=== PATIENT | female | born 1950 | race African-American/Black ===

== ENCOUNTER 2018-10-21 11:26 | Emergency (ER) | payer MEDICARE, MEDICAID ==
[~2018-10-21] VITALS: Ht 167.6 cm; Wt 102.0 kg
[2018-10-21] MEDS ORDERED: CELE-193 PO (12:32)
[2018-10-21 12:59] VITALS: BP 155/90
--- NOTE | 2018-10-21 13:47 | NUR ---
CALLED IN RX FOR PT. CELEBREX 100MG PO, PRN FOR PAIN #20
== END 2018-10-21 13:01 | disposition home or self-care (01) ==
LOC: ER 11:27
DX: M17.11 Unilateral primary osteoarthritis, right knee (principal); I10 Essential (primary) hypertension; E11.9 Type 2 diabetes mellitus without complications; Z87.891 Personal history of nicotine dependence
CPT/HCPCS: 73560; 99284

== ENCOUNTER 2023-02-11 09:39 | Emergency (ER) | payer BC, MEDICAID ==
[~2023-02-11] VITALS: Ht 157.5 cm; Wt 104.5 kg
[~2023-02-11 09:39] MED LIST: CYCL-392 PO; DICL100G15 TOP
[2023-02-11 10:14] VITALS: BP 144/87; PULSE 85; RESP 16; TEMP 98.4; O2SAT 96
[2023-02-11] MEDS ORDERED: predniSONE 20 mg tablet PO ONE (12:10)
[2023-02-11] MEDS ORDERED: diphenhydrAMINE 25mg capsule PO ONE (12:10)
[2023-02-11] MEDS ORDERED: CETI-90 PO (12:11)
[2023-02-11] MEDS ORDERED: PERM60CR19 TOP (12:11)
[2023-02-11] MEDS ORDERED: FAMO-128 PO (12:11)
[2023-02-11] MEDS ORDERED: PRED20TA PO (12:11)
== END 2023-02-11 12:31 | disposition home or self-care (01) ==
LOC: ER 09:40
DX: L30.9 Dermatitis, unspecified (principal); T78.40XA Allergy, unspecified, initial encounter; B86 Scabies; L29.9 Pruritus, unspecified; I10 Essential (primary) hypertension; E11.9 Type 2 diabetes mellitus without complications; Z79.1 Long term (current) use of non-steroidal anti-inflammatories (NSAID); X58.XXXA Exposure to other specified factors, initial encounter
CPT/HCPCS: 99283; J7512; Q0163

== ENCOUNTER 2024-11-21 10:22 | Emergency (ER) | payer BC, MEDICAID ==
[~2024-11-21] VITALS: Ht 160 cm; Wt 93.1 kg
[~2024-11-21 10:22] MED LIST changes: +AMLO-708 PO; +ASPI81TA52 PO; +ATOR-2 PO; -CYCL-392 PO; -DICL100G15 TOP; +HYDR25TA5 PO; +LISI10TA27 PO; +METF-1203 PO; +POTA-188 PO
[2024-11-21 10:32] VITALS: BP 143/76; PULSE 90; RESP 16; TEMP 98; O2SAT 98
--- NOTE | 2024-11-21 14:55 | VISIT NOTE ---
ED Rapid Medical Assessment History 73-year-old female reports ER for chief complaint of shortness a monitor complications. Patient states her Holter monitor came off and she would like it readjusted and put back on. Currently denies chest pain. 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 No other complaints at this time Exam: General: Well developed, well nourished, no distress. Respiratory: Lungs clear, no respiratory distress. Chest: No accessory muscle use, nontender. Cardiovascular: Regular rate and rhythm. Gastrointestinal: Soft, nontender, nondistended. Bowel sounds present. Extremities: Normal range of motion, nontender, normal capillary refill, no deformity. Neurologic: Oriented x4. Distal gross motor and sensory intact all four extremities. Moves all 4 extremities spontaneously. Psychiatric: Normal mood and affect. Assessment and Plan I have introduced myself to the patient and obtained a limited history and physical. I have explained that further studies may need to be obtained to r each an accurate diagnosis. Studies have been ordered consistent with the patient's chief complaint. Patient understands and wishes to proceed. Patient appears medically stable and not requiring emergent management at this time. KAVIN MARTI November 21, 2024 14:55
== END 2024-11-21 14:58 | disposition left against medical advice (07) ==
LOC: ER 10:22
DX: Z00.8 Encounter for other general examination (principal); Z91.011 Allergy to milk products; Z53.21 Procedure and treatment not carried out due to patient leaving prior to being seen by health care provider

== ENCOUNTER 2025-05-06 13:00 | Emergency (ER) | payer BC, MEDICAID ==
[~2025-05-06] VITALS: Ht 162.6 cm; Wt 97.8 kg
[2025-05-06 13:02] VITALS: TEMP 97.4
[2025-05-06 14:38] LABS: MEAN PLATELET VOLUME 6.7 FL (7.4-10.4); RED CELL DISTRIBUTION WIDTH 15.7 % (11.5-14.5)
[2025-05-06 14:55] LABS: CREATININE 0.71 MG/DL (0.40-0.90); TOTAL CARBON DIOXIDE 27.0 MMOL/L (24-32); eCRCL 59 ML/MIN; eGFR > 90 ML/MIN
--- NOTE | 2025-05-06 14:58 | RADIOLOGY REPORT ---
CHEST RADIOGRAPH Indication: Musculoskeletal pain posterior Technique: Single frontal view of the chest was obtained Comparison: DI CHEST,SINGLE VIEW on DOS: 11/25/23 FINDINGS: Lines and Tubes: None Lungs: No focal consolidation. Pleura: No effusion. No pneumothorax. Cardiomediastinal contours: Unremarkable Bones: No acute osseous abnormality. IMPRESSION: No acute cardiopulmonary disease.
[2025-05-06 15:01] LABS: LEUKOCYTE ESTERASE ,URINE SMALL (Neg); NITRITES, URINE NEGATIVE (Neg); OCCULT BLOOD,URINE NEGATIVE (Neg)
[2025-05-06 15:11] LABS: UA COLLECTION TYPE CLN CATCH MIDSTREAM
[2025-05-06 15:13] LABS: MUCUS STRANDS FEW /LPF (Neg); SQUAMOUS EPITHELIAL CELL,UR FEW /LPF (FEW)
[2025-05-06] MEDS: CefTRIAXone 1000mg IM Kit (w/lidocaine diluent) IM ONE (15:52)
[2025-05-06] MEDS: ketorolac trometh 15mg/ml vial 15 MG/ML ML IM ONE (15:52)
--- NOTE | 2025-05-06 16:12 | Physician Documentation ---
History of Present Illness ~ Chief Complaint: Back Pain Stated Complaint: SHOULDER AND HAND PAIN Time Seen by MD: 13:59 Primary Medical Doctor: Tea HPI Patient is a very pleasant 74-year-old female that presents to the emergency department for evaluation of flank pain with dysuria generalized back pain times 3 days. Patient denies any chest pain shortness of breath chest pressure nausea vomiting or diarrhea at this time. Medication Reconciliation Allergies: Coded Allergies: lactose (Verified Allergy, Severe, 05/06/25) Pt reports severe GI upset with lactose Scheduled Amlodipine Besylate (Amlodipine Besylate), 1 TAB PO DAILY, (Reported) Aspirin (Aspirin EC), 1 TAB PO DAILY, (Reported) Atorvastatin Calcium (Atorvastatin Calcium), 1 TAB PO DAILY, (Reported) Hydrochlorothiazide (Hydrochlorothiazide), 0.5 TAB PO DAILY Lisinopril (Lisinopril), 1 TAB PO DAILY, (Reported) Metformin HCl (Metformin HCl), 2 TAB PO BID, (Reported) Potassium Chloride* (Klor-Con*), 1 TAB PO DAILY, (Reported) Past Medical History Past Medical History: Hypertension, Diabetes Past Surgical History: noncontributory Alcohol Use: None Drug Use: none Lives with: Spouse Lives In: Home Occupation: employed Review of Systems ROS As stated above in the HPI, otherwise all systems are reviewed and negative. Physical Exam Physical Exam Vital Signs: Temperature: 97.4, Source: Temporal, Heart Rate: 97, Respiratory Rate: 16, BP: 167/83, Pulse Oximetry: 99, Weight: 97.800 Oxygen Flow Rate: 0 Physical Exam VITALS: Reviewed and as above. GENERAL: Alert, no apparent distress. HEENT: Normocephalic, atraumatic, PERRL, EOMI, dry mucosa, no erythema RESPIRATORY: Lungs clear, normal breath sounds, no respiratory distress. CHEST: No accessory muscle use, no retractions CV: Regular rate, rhythm, no edema, no murmur, No: JVD GI: Soft, patient was palpation to the bilateral lower abdomen, bowels sounds present, no rebound, guarding, or rigidity BACK: Positive CVA tenderness, or swelling MUSCULOSKELETAL No deformities, no edema SKIN: Warm and dry, no rash NEURO: Oriented x4, No motor or sensory deficit PSYCH: Normal mood and affect, no agitation Progress Results/Orders Results/Orders Orders - JAE,ANNMARIE A [employer]AGE DISPOSAL WORK[employer] Chest,Single View (05/06/25 14:31) Cult Urine + [address] (05/06/25 15:14) Completed Orders - ANNMARIE ROWE Obed [employer]POS[employer] Cbc/Diff (05/06/25 14:17) CMP (05/06/25 14:17) Chest,Single View (05/06/25 14:31) Acetaminophen 325mg Tablet (Tylenol Tabl (05/06/25 14:35) Ua W/Microscopic, Cult If Ind (05/06/25 14:47) Ketorolac Trometh 15mg/Ml Vial (Toradol (05/06/25 15:40) Ceftriaxone Im Kit W/Lidocaine (Rocephin (05/06/25 15:40) Medications Received in ER Medications (Trade) Dose Ordered Sig/Mango Route PRN Reason Start Time Stop Time Status Last Admin Dose Admin (Tylenol tablet) 975 mg ONCE ONCE PO 05/06/25 14:35 05/06/25 14:36 DC 05/06/25 14:57 975 MG (Toradol injection) 15 mg ONCE ONCE IM 05/06/25 15:40 05/06/25 15:41 DC 05/06/25 15:52 15 MG (Rocephin 1GM IM kit (w/lidocaine diluent)) 1,000 mg ONCE ONCE IM 05/06/25 15:40 05/06/25 15:41 DC 05/06/25 15:52 1,000 MG Vital Signs 05/06/25 05/06/25 13:02 15:52 Temp 97.4 Pulse 97 Resp 20 16 B/P (MAP) 167/83 Pulse Ox 99 O2 Flow Rate 0 Laboratory Tests Test 05/06/25 14:29 05/06/25 14:47 White Blood Count 4.7 Red Blood Count 4.36 Hemoglobin 11.3 L Hematocrit 34.9 L Mean Corpuscular Volume 80.0 Mean Corpuscular Hemoglobin 26.0 L Mean Corpuscular Hemoglobin Concent 32.5 L Red Cell Distribution Width 15.7 H Platelet Count 562 H Mean Platelet Volume 6.7 L Neutrophils (%) (Auto) 58.4 Lymphocytes (%) (Auto) 32.4 Monocytes (%) (Auto) 8.0 Eosinophils (%) (Auto) 0.6 Basophils (%) (Auto) 0.6 Neutrophils # (Auto) 2.7 Lymphocytes # (Auto) 1.5 Monocytes # (Auto) 0.4 Eosinophils # (Auto) 0.0 Basophils # (Auto) 0.0 CBC Comment Sodium Level 141 Potassium Level 3.5 Chloride Level 106 Carbon Dioxide Level 27.0 Anion Gap 8 Blood Urea Nitrogen 12 Creatinine 0.71 Estimated GFR/1.73 m2 > 90 BUN/Creatinine Ratio 16.9 Glucose Level 80 Calcium Level 9.1 Total Bilirubin 0.4 Aspartate Amino Transf (AST/SGOT) 20 Alanine Aminotransferase (ALT/SGPT) 30 Alkaline Phosphatase 75 Total Protein 8.1 Albumin 3.8 Globulin 4.3 Albumin/Globulin Ratio 0.9 L Chemistry Comments Urine Specimen Description Cln catch midstream Urine Color Yellow Urine Clarity Clear Urine pH 6.0 Urine Specific Rodman 1.015 Urine Protein Negative Urine Glucose (UA) Negative Urine Ketones Negative Urine Occult Blood Negative Urine Nitrite Negative Urine Bilirubin Negative Urine Urobilinogen 0.2 Urine Leukocyte Esterase Small H Urine RBC 3-10 Urine WBC 5-10 H Urine Squamous Epithelial Cells Few Urine Transitional Epithelial Cells Few Urine Bacteria None seen Urine Mucus Few Urine Culture Indicated Indicated Volume Urine Centrifuged 7 ml Urine Comment Low volume Microbiology Date/Time Source Procedure Growth Status 05/06/25 15:14 Urine Clean Catch Midstream Urine Culture - Preliminary Culture received. Resulted Medical Decision Making Additional information obtaine: other Findings Patient: 74-year-old female Presentation: Flank pain and dysuria. Diagnosis: Urinary tract infection (UTI) with probable pyelonephritis. Medical Decision-Making: Patient presented with classic symptoms of pyelonephritis (flank pain, dysuria). Urinalysis confirmed UTI. No evidence of sepsis, hemodynamic instability, or complicating factors (e.g., obstruction, , inability to tolerate oral intake), making her a candidate for outpatient management. Diagnostics: Urine culture obtained to guide definitive therapy per Infectious Diseases Society of [place] (IDSA) guidelines.No imaging or blood cultures indicated in uncomplicated cases. ED Interventions: Ketorolac 15 mg IM for analgesia. Ceftriaxone 1 g IM/IV as initial long-acting parenteral antimicrobial, appropriate given local resistance rates and guideline recommendations for initial therapy in pyelonephritis. Antibiotic Plan: Patient will be discharged on oral antibiotics. Empiric options include oral fluoroquinolones (e.g., ciprofloxacin 500 mg BID for 7 days or levofloxacin 750 mg daily for 5 days) if local resistance to fluoroquinolones is ?10%. If resistance rates are higher or contraindications exist, oral third-generation cephalosporins (e.g., cefpodoxime, cefdinir) are reasonable alternatives, especially after initial parenteral ceftriaxone. TMP-SMX and oral beta-lactams are less preferred due to resistance and lower efficacy, but may be considered if susceptibility is confirmed. Disposition: Patient is stable for discharge. She is alert, able to tolerate oral intake, and has reliable follow-up. Advised to monitor for worsening symptoms (fever, persistent pain, vomiting, confusion) and return if these occur. Urine culture results will be reviewed; antibiotic regimen will be adjusted if needed based on susceptibilities. Shared Decision-Making: Risks, benefits, and alternatives to outpatient management and antibiotic choices discussed. Patient agrees with plan and understands indications for return. Follow-Up: Primary care follow-up in 48-72 hours or sooner if symptoms worsen. Urine culture results pending; will contact patient if regimen change is required. Summary: Outpatient management of uncomplicated pyelonephritis with initial parenteral ceftriaxone and transition to oral antibiotics is supported by current guidelines and recent evidence.[1-5] Differential Dx:Considerations: Aortic dissection, Pyelonephritis, Urinary tract infection, Other Departure Disposition: 01 HOME / SELF CARE / HOMELESS Impression: Primary Impression: Flank pain Additional Impressions: Urinary tract infection Pyelonephritis Condition: Stable Discharge Instructions: Pyelonephritis, Adult, [id number], Urinary Tract Infection, Adult, [id number] Additional Instructions: You were seen in the emergency department for flank pain and painful urination. You were diagnosed with a urinary tract infection (UTI) with probable pyelonephritis (kidney infection). You received pain and antibiotic injections in the hospital and are being discharged with a prescription for cefpodoxime 200 mg, to be taken by mouth twice daily for 10 days. Take each dose with food to help your body absorb the medicine. What to expect: You should start to feel better within 4872 hours of starting antibiotics. Finish all of your antibiotics, even if you feel better, to make sure the infection is completely treated. Mild side effects like upset stomach or diarrhea can happen. If you have severe diarrhea, stop the medication and call your doctor. Strict return precautions: Return to the emergency department or call your doctor right away if you experience: Fever over 101F (38.3C) that does not improve after 48 hours of antibiotics Worsening or severe pain in your back, side, or abdomen Vomiting or inability to keep down fluids or medications New confusion, weakness, or trouble breathing Blood in your urine, or if your urine becomes very dark No improvement in symptoms after 23 days of antibiotics Any allergic reaction (rash, swelling, trouble breathing) Follow-up: Schedule an appointment with your primary care provider within 1 week, or sooner if you have any concerns. If your symptoms do not improve or get worse, you may need further tests or a change in medication. You do not need a repeat urine test unless your symptoms persist or return after treatment. Other instructions: Drink plenty of fluids unless your doctor has told you otherwise. Take your medication exactly as prescribed. Do not skip doses. If you have kidney problems or are on diuretics, let your doctor know, as your medication dose may need to be adjusted. If you develop new symptoms or have questions, contact your doctor or return to the emergency department. If you have any questions about your medication or your condition, please call your doctor or pharmacist. Wishing you a safe and speedy recovery. Referrals: NO PRIMARY CARE PROVIDER (PCP) Prescriptions Cefpodoxime Proxetil (Cefpodoxime Proxetil) 100 Mg Tablet 2 TAB PO Q12H for 10 Days, #14 TAB 0 Refills Prov: ANNMARIE ROWE 05/06/25 Cefpodoxime Proxetil (Cefpodoxime Proxetil) 100 Mg/5 Ml Susp.recon 1 TAB PO Q12H for 10 Days, #20 TAB 0 Refills Prov: ANNMARIE ROWE 05/06/25 Education Educated: Patient Educated regarding: diagnosis, treatment, need for follow up Signature Scribe Signature: A Attestation: Scribed for Annmarie Rowe by ALEKSANDR Mcdonnell . 05/06/25 16:21 ANNMARIE ROWE May 06, 2025 16:12
[2025-05-06] MEDS ORDERED: CEFP100T7 PO (16:20)
[2025-05-06] MEDS ORDERED: CEFP100S9 PO (16:20)
[2025-05-06 16:31] VITALS: BP 154/76; PULSE 91; RESP 16; O2SAT 97
== END 2025-05-06 16:32 | disposition home or self-care (01) ==
LOC: ER 13:01
DX: N12 Tubulo-interstitial nephritis, not specified as acute or chronic (principal); N39.0 Urinary tract infection, site not specified; R10.A0 Flank pain, unspecified side; I10 Essential (primary) hypertension; E11.9 Type 2 diabetes mellitus without complications; Z79.899 Other long term (current) drug therapy
CPT/HCPCS: 36415; 71045; 80053; 81001; 85025; 87088; 96372; 99284; J0696; J1885